=== PATIENT | female | born 1960 | race Caucasian/White ===

== ENCOUNTER 2016-05-06 23:44 | Emergency (ER) | payer MEDICARE, OTHER ==
--- NOTE | ~2016-05-06 | EKG ---
PATIENT: ABHAY BAUMANN UNIT #: [id number] Ventricular Rate: 79 BPM Atrial Rate: 79 BPM P-R Interval: 162 ms QRS Duration: 82 ms Q-T Interval: 398 ms QTC Calculation(Bezet): 456 ms P [place]: 35 degrees Calculated R [place]: 24 degrees Calculated T [place]: 39 degrees Diagnosis Line: Normal sinus rhythm Diagnosis Line: Normal ECG Diagnosis Line: When compared with ECG of 24-JUN-2015 20:59, Diagnosis Line: Nonspecific T wave abnormality no longer evident Diagnosis Line: in Inferior leads Diagnosis Line: Confirmed by JAROD JC MD ([id number]) on 05/11/2016 Diagnosis Line: 11:10:29 PM INTERPRETING MD: HOSEA MCFADDEN
--- NOTE | ~2016-05-06 | EKG ---
PATIENT: ABHAY BAUMANN UNIT #: [id number] Ventricular Rate: 79 BPM Atrial Rate: 79 BPM P-R Interval: 162 ms QRS Duration: 82 ms Q-T Interval: 398 ms QTC Calculation(Bezet): 456 ms P [place]: 35 degrees Calculated R [place]: 24 degrees Calculated T [place]: 39 degrees Diagnosis Line: Normal sinus rhythm Baseline wander Diagnosis Line: Normal ECG Diagnosis Line: When compared with ECG of 24-JUN-2015 20:59, Diagnosis Line: Nonspecific T wave abnormality no longer evident Diagnosis Line: in Inferior leads Diagnosis Line: Reconfirmed by JAROD JC MD ([id number]) on Diagnosis Line: 05/11/2016 11:10:44 PM INTERPRETING MD: HSOEA MCFADDEN
--- NOTE | ~2016-05-06 | CR72 ---
[facility] A Service [facility] RADIOLOGY TEXT RESULTS PATIENT: ABHAY BAUMANN LOCATION: SED : 60 UNIT #: [id number] AGE: [address]: Jurgen Burroughs MD SEX: F ORDER DR: [id number] [place] [address] [id number] E MR#: [id number] Acc #: [id number] NAME: ABHAY BAUMANN : 1960 SEX: F STUDY DATE/TIME: 05/06/2016 23:32 UNIT: SED ROOM: STUDY DESCRIPTION: CR Chest Single View Portable Attending Physician: Jurgen Burroughs M.D. Ordering Physician: Jurgen Burroughs M.D. Primary Care Physician: John Pineda M.D. MEDICAL IMAGING REPORT This report is preliminary unless electronic signature is present. EXAM AP portable chest 05/06/2016. HISTORY A 56-year-old female in the ED complaining of 1-day history of chest pain/pressure as well as left side neck pain right shoulder pain. TECHNIQUE AP portable upright chest x-ray. FINDINGS No active disease in the chest. Heart size and pulmonary vascularity are normal. The lungs are expanded and clear. No visible pulmonary filtrate or pleural effusion. No change since 06/24/2015. IMPRESSION Negative chest. No change since 06/24/2015. Dictated by... Jan Loyd M.D. THIS IS AN ELECTRONICALLY VERIFIED REPORT Jan Loyd M.D. at 05/07/2016 9:53 PM ORLY/hema TD: 05/07/2016 06:52 JOB #: [id number] MEDICAL IMAGING REPORT [facility] A [facility] RADIOLOGY TEXT RESULTS PATIENT: ABHAY BAUMANN LOCATION: SED : 60 UNIT #: [id number] AGE: [address]: Jurgen Burroughs MD SEX: F ORDER DR: Page 1 of 1
[2016-05-06 23:41] LABS: BASOPHIL# 0.1 X10e3 (0-0.3); BASOPHIL% 0.9 % (0-2.5); EOSINOPHIL# 0.1 X10e3 (0-0.7); EOSINOPHIL% 1.7 % (0.0-7.0); HEMATOCRIT 41.5 % (35.0-45.0); HEMOGLOBIN 13.6 gm/dL (12.0-16.0); LYMPHOCYTE# 3.7 X10e3 (1.0-3.5); LYMPHOCYTE% 43.9 % (17.0-45.0); MEAN CELL VOLUME 91.1 FL (83-96); MEAN CORPUSCULAR HEMOGLOBIN 29.8 PG (28-34); MEAN CORPUSCULAR HGB CONC 32.7 g/dL (30-36); MEAN PLATELET VOLUME 9.2 FL (6.5-11.5); MONOCYTE# 0.5 X10e3 (0-1.0); MONOCYTE% 6.5 % (3.0-12.0); NEUTROPHIL# 3.9 X10e3 (1.5-7.1); PLATELET COUNT 204 X10e3 (140-420); RED BLOOD COUNT 4.56 X10e (3.90-5.30); RED CELL DISTRIBUTION WIDTH 13.4 % (11.0-15.5); WHITE BLOOD COUNT 8.4 X10e3 (4.0-10.5)
[2016-05-06 23:43] LABS: DIFF IND NO
[~2016-05-06 23:44] MED LIST: ANTIVERT12.5 MG; BENTYL10 MG; BENTYL10 MG PO; CAPOZIDE; CLONAZEPAM0.125 MG/T; FLEXERIL PO; FLEXERIL10 M1 PO; GLUCOPHAGE XR500 MG PO; GLUCOTROL PO; IBUPROFEN PO; LEVAQUIN PO; LOPRESSOR PO; LORTAB 10-5001 EACH; LORTAB 7.5-5001 TAB PO; MEDI-MECLIZINE25 M1 PO; METFORMIN PO; MOBIC PO; NEURONTIN100 MG PO; PREDNISONE PO; PREMARIN PO; PREVACID PO; REGLAN PO; REGLAN10 MG PO; SAVELLA50 MG PO; SINGULAIR PO; SKELAXIN PO; TESSALON200 MG PO; TOPROL XL PO; ULTRAM PO; VENTOLIN5 MG/ML
[2016-05-06 23:49] LABS: PROTHROMBIN TIME (PATIENT) 10.8 SECONDS (9.5-12.4)
[2016-05-06 23:56] LABS: POC - CKMB 1.3 ng/mL (0.0-7.9)
[2016-05-06 23:57] LABS: POC - TROPONIN <0.05 ng/mL (<=0.05)
[2016-05-06 23:57] LABS: PARTIAL THROMBOPLASTIN TIME 39.2 SECONDS (25.6-38.1)
[2016-05-06 23:58] LABS: ALBUMIN SERUM 4.1 g/dL (3.5-5.0); ALKALINE PHOSPHATASE 65 U/L (32-92); ALT (SGPT) 89 U/L (10-40); AST (SGOT) 84 U/L (10-42); BILIRUBIN,TOTAL 0.4 mg/dL (0.2-2.0); BLOOD UREA NITROGEN 12 mg/dL (9-23); BUN/CREATININE RATIO 17.14; CALCIUM SERUM 10.1 mg/dL (8.4-10.2); CARBON DIOXIDE 27 mmol/L (22-31); CHLORIDE 102 mmol/L (100-111); CREATININE SERUM 0.7 mg/dL (0.6-1.4); GLOM FILT RATE Estimated ABOVE60 mL/min (>60); GLUCOSE FASTING 121 mg/dL (70-110); PROTEIN TOTAL SERUM 7.9 g/dL (6.0-8.3); SODIUM 138 mmol/L (135-145)
== END 2016-05-07 02:22 ==
LOC: SED 23:44
DX: R07.9 Chest pain, unspecified (principal); I10 Essential (primary) hypertension; E78.5 Hyperlipidemia, unspecified; E11.9 Type 2 diabetes mellitus without complications; F41.9 Anxiety disorder, unspecified; J45.909 Unspecified asthma, uncomplicated; Z79.899 Other long term (current) drug therapy; Z88.8 Allergy status to other drugs, medicaments and biological substances
CPT/HCPCS: 71010; 80053; 82553; 83874; 84484; 85025; 85610; 85730; 93005; 99285